=== PATIENT | male | born 1975 | race Caucasian/White ===

== ENCOUNTER 2019-11-24 15:29 | Emergency (ER) | payer OTHER, SELFPAY ==
[2019-11-24 15:30] VITALS: BP 141/99; PULSE 57; RESP 17; TEMP 36.7; O2SAT 100; BMI 29.2
[2019-11-24 15:34] VITALS: BP 141/99; PULSE 58; RESP 14; O2SAT 98
--- NOTE | 2019-11-24 15:46 | EKG12_ITS ---
Test Reason : SYNCOPE Blood Pressure : / mmHG Vent. Rate : 056 BPM Atrial Rate : 056 BPM P-R Int : 142 ms QRS Dur : 088 ms QT Int : 418 ms P-R-T Axes : 052 -04 011 degrees QTc Int : 403 ms Sinus bradycardia Otherwise normal ECG Confirmed by THEODORE ABERNATHY, SAM ([id number]), editorial cartoonist SURI MONTALVO ([id number]) on 11/25/2019 9:23:39 AM Referred By: PENG Confirmed By:SAM JAIMES MD
[2019-11-24 16:07] VITALS: O2SAT 96
[2019-11-24 16:12] LABS: Absolute Lymphocyte Count 1.99 X10^3/uL (0.83-4.51); Absolute Neutrophil Count 2.6 X10^3/uL (2.0-7.7); Basophil# 0.03 X10^3/uL; Basophil% 0.6 % (0-1); Eosinophil# 0.05 X10^3/uL; Hematocrit 42.5 % (40-54); Hemoglobin 13.7 g/dL (13.0-16.5); Lymphocyte # 1.99 X10^3/ul (4.0); Lymphocyte % 38.9 % (19-41); Mean Corp Hgb Conc 32.2 g/dL (32-36); Mean Corpuscular Hgb 27.1 pg (27.0-32.0); Mean Platelet Vol. 11.2 fl (6.2-12.0); Monocyte# 0.45 X10^3/uL; Monocyte% 8.8 % (0-10); NRBC Flagged by Analyzer 0 % (0-5); Neutrophil # 2.58 X10^3/uL (2.7-7.7); Neutrophil % 50.3 % (47-70); Platelet Count 213 K/mm3 (150-450); RBC Distribution Width CV 13.9 % (11.6-14.6); RBC Distribution Width SD 42.5 fl (35.1-43.9); Red Blood Count 5.06 M/mm3 (4.6-6.2); White Blood Count 5.1 K/mm3 (4.4-11.0)
[2019-11-24] MEDS: 0.9% Normal Saline 1,000 ML 1000 ML IV (16:13)
--- NOTE | 2019-11-24 16:20 | RAD_ITS ---
STUDY: X-RAY CHEST REASON FOR EXAM: Male, 44 years old. HAD A FEW SYNCOPAL EPISODES TODAY TECHNIQUE: Single AP portable view of the chest. COMPARISON: None. FINDINGS: EKG leads overlie the chest The lungs are clear and expanded. There is no demonstrated pleural abnormality. Normal size heart. Normal mediastinum and eric. Normal visualized pulmonary arteries. Normal visualized aortic arch and descending thoracic aorta. Normal visualized thoracic spine. Normal visualized ribs, clavicles, and shoulders. There is no demonstrated abnormality of the visualized soft tissue structures of the upper abdomen. RAD/Chest 1 View (Portable) IMPRESSION: Normal x-ray examination of the chest. Electronically Signed: Antonio Knowles MD at 16:31 EDT , Service support ,
[2019-11-24 16:28] LABS: Anion Gap 8 (5-15); BUN 19 mg/dL (7-18); BUN/Creat Ratio 21.3 RATIO (10-20); Calcium,Total 8.1 mg/dL (8.5-10.1); Chloride 111 mmol/L (98-107); Creatinine, Serum 0.89 mg/dL (0.70-1.30); EST Glomerular Filtration Rate 99 mL/min (>60); Est Glom Filt Rate - Afr Amer 120 mL/min (>60); Estimated Creatinine Clearance 111.64 ml/min; Glucose 89 mg/dL (74-106); Potassium 3.5 mmol/L (3.5-5.1); Sodium Level 141 mmol/L (136-145)
--- NOTE | 2019-11-24 17:37 | ED.VIS.GEN ---
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 He has a history of syncope, he felt prodromal symptoms he sat down laid down and then he passed out. No seizure-like activity witnessed. Patient felt lightheaded and feels lightheaded when asked him to stand up. He denies any chest pain shortness of breath any DVT or PE risk factors he has no calf pain or leg pain. He has no recent fever or chills. He denies a headache he denies any palpitations. Past Medical History - Allergies and Home Meds Allergies/Adverse Reactions: Allergies No Known Allergies Allergy (Verified 11/24/19 15:30) Primary Care Physician: Care Physician,No Primary [Primary Care Provider] - Past Medical History: None Smoking Status: Never smoker Review of Systems General: Denies: Fever Eyes: Denies: Visual changes - bilaterally Cardiovascular: Reports: - - Syncope as in HPI. Denies: Chest pain, Palpitations, Heart racing Respiratory: Denies: Dyspnea, Cough Gastrointestinal: Denies: Abdominal pain, Nausea, Vomiting Musculoskeletal: Denies: Myalgias, Neck pain, Back pain Skin: Denies: Rash Neurological: Denies: Headache, Weakness, Parasthesia, Numbness Endocrine: Denies: Polyuria Hematologic: Denies: Easy bruising Allergy: Denies: Uticaria Physical Exam Vital Signs/Narrative: Vital Signs Temp Pulse Resp BP Pulse Ox 11/24/19 16:07 96 11/24/19 15:34 58 L 14 141/99 H 98 11/24/19 15:30 98.1 F 57 L 17 141/99 H 100 General: Well nourished, Well developed Head: Normocephalic Eyes: Perrl. Negative for: Pale conjunctiva ENT: Dry mucous membranes Neck: Supple Cardiovascular: Regular rate, Regular rhythm Respiratory: No distress, CTA bilaterally Abdomen: Soft, Nontender Back: Nontender, Normal Inspection Extremities: Nontender, No edema Skin: Normal color Neurological: Alert, Oriented x3 Psychological: Normal affect Diagnostic/Tx/Re-eval - Rhythm Strip Rhythm Strip: Sinus Rhythm Rate: 56 Ectopy: None - EKG Initial EKG Interpretation: - - Normal sinus rhythm with a rate of 56. Normal UT and QTc intervals. No ischemic changes. No signs of Brugada. No LVH. - Medical Decision Making Initially when I saw the patient I stood him up his heart rate went from 60 to about 85 and he was symptomatic. After IV fluids he significantly improved he has a normal EKG, normal blood work and appears significantly improved I believe the cause of his syncope is secondary to volume, will be discharged in stable condition. ED Disposition - Plan for ED Patient: Disposition: Home or Assisted Living Diagnosis: Syncope, Dehydration Instructions: ED Dehydration Adult, ED Fainting Uncertain Cause Referrals: Care Physician,No Primary [Primary Care Provider] - 2 Days
[2019-11-24 17:58] VITALS: BP 129/88; RESP 18; O2SAT 99
[2019-11-24 18:24] VITALS: BP 114/83; PULSE 58; RESP 16; O2SAT 99
== END 2019-11-24 18:26 | disposition home or self-care (01) ==
PROVIDERS: Emergency Provider Emergency Medicine
DX: R55 Syncope and collapse (principal); E86.0 Dehydration
CPT/HCPCS: 71045; 80048; 84484; 85025; 93005; 96360; 96361; 99285